=== PATIENT | female | born 1985 | race Caucasian/White ===

== ENCOUNTER 2021-11-01 19:50 | Inpatient (IN) | payer OTHER ==
[~2021-11-01] VITALS: Ht 149.9 cm; Wt 63.0 kg
[2021-11-01] MEDS ORDERED: OXYTOCIN 30 UNITS/500ML NS PMX 500 ML IV SCH ×2 (20:45→22:15)
[2021-11-01] MEDS ORDERED: LIDOCAINE HCL 1% 10 MG/ML 10ML VIAL IJ SCH (20:45)
[2021-11-01] MEDS ORDERED: NALOXONE HCL 0.4 MG/ML 1ML VIAL IM PRN (20:45)
[2021-11-01] MEDS ORDERED: LACTATED RINGERS 1,000 ML IV SCH (20:45)
[2021-11-01] MEDS ORDERED: MISOPROSTOL 100MCG TABLET VG SCH (20:45)
[2021-11-01 21:55] LABS: BASOPHILS % 0.3 % (0.0-2.0); EOSINOPHILS % 0.3 % (0.0-5.0); LYMPHOCYTES % 16.4 % (20.0-50.0); MEAN CORPUSCULAR HEMOGLOBIN 25.7 pg (28.0-32.0); MEAN CORPUSCULAR VOLUME 76.9 fL (81.0-99.0); MEAN PLATELET VOLUME 8.8 fl (7.4-10.4); PLATELET 207 x1000/uL (130-400); RED BLOOD CELL COUNT 4.29 mill/uL (4.2-5.4); RED CELL DISTRIBUTION WIDTH 17.7 % (11.6-14.6)
[2021-11-01 22:01] LABS: INR 0.9; PARTIAL THROMBOPLASTIN TIME 22.8 sec (23.4-31.0); PROTHROMBIN TIME 9.8 sec (9.6-11.0)
[2021-11-01] MEDS ORDERED: GLYCERIN/WITCH HAZEL LEAF MEDICATED PAD TOP PRN (22:15)
[2021-11-01] MEDS ORDERED: HEMORRHOIDAL SUPP PR PRN (22:15)
[2021-11-01] MEDS ORDERED: ACETAMINOPHEN WITH CODEINE 300/30MG TABLET PO PRN (22:15)
[2021-11-01] MEDS ORDERED: DIPHENHYDRAMINE 25MG CAPSULE PO PRN (22:15)
[2021-11-01] MEDS ORDERED: RHO(D) IMMUNE GLOBULIN 300 MCG/SYR IM PRN (22:15)
[2021-11-01] MEDS ORDERED: BENZOCAINE/LANOLIN/ALOE VERA SPRAY TOP PRN (22:15)
[2021-11-01] MEDS ORDERED: IBUPROFEN 400MG TABLET PO PRN (22:15)
[2021-11-01] MEDS ORDERED: LANOLIN OINT 7GM TUBE TOP PRN (22:15)
[2021-11-01] MEDS ORDERED: BISACODYL 10MG SUPP PR PRN (22:15)
[2021-11-01 22:30] LABS: HEPATITIS B SURFACE ANTIGEN NEGATIVE
[2021-11-01 23:10] LABS: CLARITY URINE CLEAR (CLEAR); COLOR URINE YELLOW (YELLOW); KETONES URINE NEGATIVE (NEGATIVE); LEUKOCYTE ESTERASE URINE NEGATIVE (NEGATIVE); NITRITE URINE NEGATIVE (NEGATIVE); OCCULT BLOOD URINE 3+ (NEGATIVE); PH URINE 6.5 (4.5-8.0); PROTEIN URINE NEGATIVE (NEGATIVE); SPECIFIC GRAVITY URINE 1.006 (1.005-1.030); UROBILINOGEN URINE 0.2 E.U./dL (0.2-1.0)
[2021-11-01 23:26] LABS: *AMPHETAMINES SCREEN URINE NEGATIVE (NEGATIVE); *BARBITURATES SCREEN URINE NEGATIVE (NEGATIVE); *BENZODIAZEPINES SCREEN URINE NEGATIVE (NEGATIVE); *COCAINE SCREEN URINE NEGATIVE (NEGATIVE); CANNABINOID URINE SCREEN NEGATIVE (NEGATIVE); METHADONE URINE SCREEN NEGATIVE (NEGATIVE); OPIATES URINE SCREEN NEGATIVE (NEGATIVE); PHENCYCLIDINE URINE SCREEN NEGATIVE (NEGATIVE)
[2021-11-02 01:50] VITALS: BP 112/66
[2021-11-02 02:30] VITALS: BP 106/63
[2021-11-02 04:20] VITALS: BP 108/61
[2021-11-02 07:33] LABS: BASOPHILS % 0.2 % (0.0-2.0); EOSINOPHILS % 0.2 % (0.0-5.0); HEMATOCRIT. 29.9 % (36.0-48.0); HEMOGLOBIN. 10.1 g/dL (12.0-16.0); LYMPHOCYTES % 19.2 % (20.0-50.0); MEAN CORPUSCULAR HEMOGLOBIN 25.9 pg (28.0-32.0); MEAN CORPUSCULAR VOLUME 76.7 fL (81.0-99.0); MEAN PLATELET VOLUME 8.7 fl (7.4-10.4); MONOCYTES % 8.3 % (2.0-8.0); NEUTROPHILS % 72.1 % (40.0-76.0); PLATELET 191 x1000/uL (130-400); RED BLOOD CELL COUNT 3.89 mill/uL (4.2-5.4); RED CELL DISTRIBUTION WIDTH 17.8 % (11.6-14.6)
[2021-11-02 08:00] VITALS: BP 103/53
[2021-11-02] MEDS: IBUPROFEN 800MG TABLET PO PRN ×2 (08:40→14:19)
[2021-11-02] MEDS: SIMETHICONE 80MG TABLET CHEW PO SCH ×4 (08:40→21:09)
[2021-11-02] MEDS: PRENATAL VIT/FE FUMARATE/FA TABLET PO SCH (08:41)
[2021-11-02] MEDS: MAGNESIUM/ALUMINUM HYDROXIDE/SIMETHICONE 30ML UDC PO SCH ×3 (08:41→21:08)
[2021-11-02] MEDS: FERROUS SULFATE 325MG TABLET PO SCH ×3 (08:41→17:46)
[2021-11-02 16:20] VITALS: BP 138/71
[2021-11-02 20:00] VITALS: BP 114/74
[2021-11-02] MEDS ORDERED: DOCUSATE SODIUM 100MG CAPSULE PO SCH (21:00)
[2021-11-03 04:00] VITALS: BP 115/71
[2021-11-03] MEDS: MAGNESIUM/ALUMINUM HYDROXIDE/SIMETHICONE 30ML UDC PO SCH (07:30)
[2021-11-03] MEDS: FERROUS SULFATE 325MG TABLET PO SCH (07:30)
[2021-11-03] MEDS: SIMETHICONE 80MG TABLET CHEW PO SCH (08:00)
[2021-11-03] MEDS: PRENATAL VIT/FE FUMARATE/FA TABLET PO SCH (08:56)
[2021-11-03 09:00] VITALS: BP 117/68
== END 2021-11-03 10:25 | disposition home or self-care (01) | DRG 560 ==
LOC: OBSVTOIN 19:50 → 8 EST LDRP 19:50 → 8EST 11-02 00:17
PROVIDERS: ADMIT Obstetrics & Gynecology; ATTEND Obstetrics & Gynecology
PROC: 10E0XZZ Delivery of Products of Conception, External Approach (ICD-10-PCS; principal; 2021-11-01)
DX: O77.0 Labor and delivery complicated by meconium in amniotic fluid (principal); Z37.0 Single live birth; Z20.822 Contact with and (suspected) exposure to COVID-19; Z3A.39 39 weeks gestation of pregnancy
CPT/HCPCS: 36415; 80305; 81003; 85025; 86592; 86703; 86762; 86850; 86900; 87340; 87426; 99281; G0378; J2590